=== PATIENT | male | born 1930 | race Caucasian/White ===

== ENCOUNTER 2018-10-15 06:57 | Day surgery (SDC) | payer OTHER ==
[~2018-10-15] VITALS: Ht 175.3 cm; Wt 80.7 kg
[2018-10-15] MEDS ORDERED: CEFAZOLIN SOD 1 GM in D5W 50 ML IV ONE (07:15)
[2018-10-15] MEDS ORDERED: ALBUTEROL SULFATE 0.083% 2.5 MG/3 ML VIAL.NEB INH ONE ×2 (07:30→08:32)
[2018-10-15] MEDS ORDERED: SEVOFLURANE 15 MIN GAS INH ONE (09:00)
[2018-10-15] MEDS ORDERED: DIGOXIN 0.5 MG/2 ML AMP IVP ONE (09:00)
[2018-10-15] MEDS ORDERED: LR 1,000 ML IV.SOLN IV ONE (09:00)
[2018-10-15] MEDS ORDERED: BUPIVACAINE /PF 0.25% 30 ML VIAL INJ ONE (09:00)
[2018-10-15] MEDS ORDERED: MIDAZOLAM HCL 5 MG/5 ML VIAL IVP ONE (09:00)
[2018-10-15] MEDS ORDERED: NEOSTIGMINE METHYLSULFATE 1 MG/ML, 10 ML VIAL IVP ONE (09:00)
[2018-10-15] MEDS ORDERED: NS IRRIG SOLN 1000 ML IR ONE (09:00)
[2018-10-15] MEDS ORDERED: GLYCOPYRROLATE 0.2 MG/ML VIAL IJ ONE (09:00)
[2018-10-15] MEDS ORDERED: PROPOFOL 200MG/ 20ML VIAL (DIPRIVAN) IV ONE (09:00)
[2018-10-15] MEDS ORDERED: ROCURONIUM BROMIDE 10 MG/ML (ZEMURON) IV ONE (09:00)
[2018-10-15] MEDS ORDERED: fentaNYL CITRATE 250 MCG/5 ML AMP IV ONE (09:00)
[2018-10-15] MEDS ORDERED: IOHEXOL 50 ML IV ONE (09:18)
[2018-10-15] MEDS ORDERED: LR 1,000 ML IV SCH (10:36)
[2018-10-15] MEDS ORDERED: METOCLOPRAMIDE HCL 10 MG/2 ML VIAL IVP PRN (10:45)
[2018-10-15] MEDS ORDERED: MORPHINE 4 MG/ML INJ. SYRINGE IVP PRN ×3 (10:45)
[2018-10-15] MEDS ORDERED: ACETAMINOPHEN 325 MG TABLET PO PRN (11:00)
[2018-10-15] MEDS ORDERED: ONDANSETRON HCL 4 MG/2 ML VIAL IVP PRN (11:00)
[2018-10-15] MEDS ORDERED: HYDROcodone/ACETAMIN 5-325 MG TAB (NORCO/ VICODIN) PO PRN ×2 (11:00)
[2018-10-15] MEDS ORDERED: LevALBUTEROL HCL 1.25 MG/0.5 ML *CONC.* VIAL.NEB (XOPENEX CONC.) INH ONE ×2 (11:30→11:44)
[2018-10-15] MEDS ORDERED: MIDAZOLAM HCL 2 MG/2 ML VIAL (VERSED) IVP ONE (11:45)
[2018-10-15] MEDS ORDERED: MIDAZOLAM HCL 2 MG/2 ML VIAL (VERSED) ONE (11:46)
[2018-10-15 12:15] VITALS: BP_SYST 134
[2018-10-15] MEDS: HYDROmorphone 1 MG INJ. 1 MG/ML AMPUL IVP PRN ×2 (15:44→22:31)
[2018-10-15 16:00] VITALS: BP_SYST 111
[2018-10-15 18:19] VITALS: BP_SYST 113
[2018-10-15] MEDS: D5/0.45 NS 1,000 ML IV SCH ×2 (18:52→19:40)
[2018-10-15] MEDS: CEFAZOLIN 1 GM IVPB PREMIX 50 ML IV SCH ×2 (18:52→18:53)
[2018-10-15] MEDS ORDERED: BUDESONIDE 0.5 MG/2 ML AMPUL.NEB INH SCH (19:00)
[2018-10-15] MEDS ORDERED: ALBUTEROL SULFATE 0.083% 2.5 MG/3 ML VIAL.NEB INH SCH (19:00)
[2018-10-15 19:15] VITALS: BP_SYST 138
[2018-10-15] MEDS: FAMOTIDINE PF 20 MG/2 ML VIAL IVP SCH (22:12)
[2018-10-16] VITALS: BP_SYST 128
[2018-10-16] MEDS: D5/0.45 NS 1,000 ML IV SCH (06:06)
[2018-10-16 06:17] LABS: HEMATOCRIT 41.8 % (36-54); HEMOGLOBIN 14.1 g/dL (14.0-18.0); MEAN CORPUSCULAR HEMOGLOBIN 33 pg (27-31); MEAN CORPUSCULAR HGB CONC 34 % (32-36); MEAN CORPUSCULAR VOLUME 96 fL (79.0-98.0); PLATELET COUNT (AUTO) 195 K/uL (130-430); RED BLOOD CELL COUNT(AUTO) 4.35 MIL/uL (4.2-6.2); RED CELL DISTRIBUTION WIDTH 13.5 % (9.0-15.0); WHITE BLOOD COUNT (AUTO) 22.4 K/uL (4.8-10.8)
[2018-10-16 06:34] LABS: ALANINE AMINOTRANSFERASE 42 U/L (12-78); ALBUMIN 2.9 g/dL (3.4-4.8); ANION GAP 5 (5-15); ASPARTATE AMINOTRANSFERASE 52 U/L (10-37); CALCIUM 8.7 mg/dL (8.4-11.0); CHLORIDE 101 mmol/L (98-107); GLUCOSE 111 mg/dL (70-99); POTASSIUM 4.3 mmol/L (3.5-5.1); SODIUM SERUM 133 mmol/L (136-145); TOTAL BILIRUBIN 1.1 mg/dL (0.0-1.0); UREA NITROGEN, BLOOD 11 mg/dL (8-21)
[2018-10-16 08:47] VITALS: BP_SYST 146
[2018-10-16] MEDS: FAMOTIDINE PF 20 MG/2 ML VIAL IVP SCH (08:53)
[2018-10-16 08:57] LABS: BASOPHILS % (MANUAL) 0 % (0-2); EOSINOPHILS % (MANUAL) 0 % (0-7); LYMPHOCYTES % (MANUAL) 4 % (20-46); MONOCYTES % (MANUAL) 1 % (0-11)
[2018-10-16] MEDS ORDERED: ATORVASTATIN 10 MG TABLET PO SCH (09:00)
[2018-10-16] MEDS ORDERED: TAMSULOSIN HCL 0.4 MG CAP PO SCH (09:00)
[2018-10-16] MEDS ORDERED: DILTIAZEM HCL 240 MG CAP.SR.24H PO SCH (09:00)
[2018-10-16] MEDS ORDERED: CEPH-568 PO (10:45)
[2018-10-16] MEDS ORDERED: FAMO-132 PO (10:45)
[2018-10-16] MEDS ORDERED: ALBMDI INH (10:47)
[2018-10-16 12:45] VITALS: BP_SYST 110
[2018-10-16 12:58] VITALS: BP_SYST 110
== END 2018-10-16 13:20 | disposition home or self-care (01) ==
LOC: SMU 06:57 → SDS 06:57 → STU 12:52 → SDS 10-16 13:20
PROVIDERS: ATTEND Colon & Rectal Surgery
DX: K80.40 Calculus of bile duct with cholecystitis, unspecified, without obstruction (principal); I10 Essential (primary) hypertension; I20.9 Angina pectoris, unspecified; I48.91 Unspecified atrial fibrillation; G62.9 Polyneuropathy, unspecified; J44.9 Chronic obstructive pulmonary disease, unspecified; K21.9 Gastro-esophageal reflux disease without esophagitis; G89.29 Other chronic pain; Z86.73 Personal history of transient ischemic attack (TIA), and cerebral infarction without residual deficits; Z79.899 Other long term (current) drug therapy; Z88.8 Allergy status to other drugs, medicaments and biological substances; Z98.890 Other specified postprocedural states; Z82.49 Family history of ischemic heart disease and other diseases of the circulatory system
CPT/HCPCS: 36415; 47563; 74300; 80053; 85007; 85027; 87081; 88304; 94640 ×2; C1727; C1758; J0690 ×2; J1160; J1170; J2250; J2704; J2710; J3010; J3465; J3490 ×4; J7060; J7120; J7612; J7613 ×2; Q9967; 76000